=== PATIENT | male | born 1990 | race Asian ===

== ENCOUNTER 2017-08-29 00:39 | Emergency (ER) | payer OTHER ==
[2017-08-29] MEDS ORDERED: NS 1,000 ML IV ONE (00:42)
--- NOTE | 2017-08-29 00:45 | EDPHY ---
H & P HPI/ROS: HPI CHIEF COMPLAINT: Altered mental status, polysubstance ingestion, agitated combative behavior sedated in the field HISTORY OF PRESENT ILLNESS: 28-year-old male, Geovani Ontiveros, presents emergency room by EMS for acute alcohol intoxication as well as possible polysubstance ingestion. His roommates called 911. When EMS arrived evaluate him he became agitated and aggressive with them requiring 5 mils IV Versed in route to the emergency room. Report that he had alcohol to drink and possibly other substances. It Is reported marijuana. Unclear why became agitated. Arrival to the emergency room he is sleepy, sedated IV 5 mg of Versed in route, he is unable to participate in exam or give an accurate history this time. Unclear if there was trauma related. But there is no significant trauma on exam. Blood sugar reported 98 upon arrival. Past Medical History: Unknown medical history Past Surgical History: Unknown surgical history Social History: Unknown Family History: Unknown ROS REVIEW OF SYSTEMS: A comprehensive 10 point review of systems is otherwise negative aside from elements mentioned in the history of present illness. Exam Constitutional sleepy, triage nursing summary reviewed, vital signs reviewed, awake/alert. Eyes normal conjunctivae and sclera, EOMI, PERRLA. Horizontal beating nystagmus consistent acute alcohol intoxication HENT normal inspection, atraumatic, moist mucus membranes, no epistaxis, neck supple/ no meningismus, no raccoon eyes. Respiratory clear to auscultation bilaterally, normal breath sounds, no respiratory distress, no wheezing. Cardiovascular rate normal, regular rhythm, no murmur, no edema, distal pulses normal. Gastrointestinal soft, non-tender, no rebound, no guarding, normal bowel sounds, no distension, no pulsatile mass. Genitourinary no CVA tenderness. Musculoskeletal no midline vertebral tenderness, full range of motion, no calf swelling, no tenderness of extremities, no meningismus, good pulses, neurovascularly intact. Skin pink, warm, & dry, no rash, skin atraumatic. Neurologic sleepy, moves everything. Psychiatric normal mood/affect. Heme/Lymph/Immune no lymphadenopathy. Differential Diagnosis: Includes but is not limited to in a particular order polysubstance abuse, alcohol intoxication, substance intoxication, intracranial bleed Medical Decision Making: Plan for this patient IV establishment full assessment director obtain blood work, check alcohol level, drug screen, CT head without contrast rule out bleed, and re-evaluate. Re-evaluation: 0102: CT scan head without contrast negative for acute bleed or traumatic injury. 0203: Serum alcohol 63 0314: Patient ambulated well throughout the emergency without difficulty. Stable gait. Would like to go home. He has safe ride home with his friend at bedside. Vital signs are stable Source: EMS Exam Limitations: Intoxication Constitutional: Initial Vital Signs Temperature (C) 36.5 C 08/29/17 00:35 Heart Rate 118 H 08/29/17 00:35 Respiratory Rate 16 08/29/17 00:35 Blood Pressure 130/56 H 08/29/17 00:35 O2 Sat (%) 89 L 08/29/17 00:35 O2 Delivery Mode Room Air O2 (L/minute) 1 Medical Decision Making - Data Points Laboratory Results: Laboratory Results 08/29/17 01:15 08/29/17 01:15 08/29/17 08/29/17 01:15 01:15 WBC 5.08 10^3/uL 10^3/uL (3.80-9.50) RBC 4.42 10^6/uL 10^6/uL (4.40-6.38) Hgb 14.4 g/dL g/dL (13.7-17.5) Hct 41.3 % % (40.0-51.0) MCV 93.4 fL fL (81.5-99.8) MCH 32.6 pg pg (27.9-34.1) MCHC 34.9 g/dL g/dL (32.4-36.7) RDW 12.0 % % (11.5-15.2) Plt Count 209 10^3/uL 10^3/uL (150-400) MPV 9.6 fL fL (8.7-11.7) Neut % (Auto) 57.1 % % (39.3-74.2) Lymph % (Auto) 34.8 % % (15.0-45.0) [place] % (Auto) 6.7 % % (4.5-13.0) Eos % (Auto) 0.4 % L % (0.6-7.6) Baso % (Auto) 0.6 % % (0.3-1.7) Nucleat RBC Rel Count 0.0 % % (0.0-0.2) Absolute Neuts (auto) 2.90 10^3/uL 10^3/uL (1.70-6.50) Absolute Lymphs (auto) 1.77 10^3/uL 10^3/uL (1.00-3.00) Absolute Monos (auto) 0.34 10^3/uL 10^3/uL (0.30-0.80) Absolute Eos (auto) 0.02 10^3/uL L 10^3/uL (0.03-0.40) Absolute Basos (auto) 0.03 10^3/uL 10^3/uL (0.02-0.10) Absolute Nucleated RBC 0.00 10^3/uL 10^3/uL (0-0.01) Immature Gran % 0.4 % % (0.0-1.1) Immature Gran # 0.02 10^3/uL 10^3/uL (0.00-0.10) Sodium 144 mEq/L mEq/L (135-145) Potassium 3.6 mEq/L mEq/L (3.5-5.2) Chloride 105 mEq/L mEq/L (97-110) Carbon Dioxide 22 mEq/l mEq/l (22-31) Anion Gap 17 mEq/L H mEq/L (8-16) BUN 14 mg/dL mg/dL (7-23) Creatinine 0.9 mg/dL mg/dL (0.7-1.3) Estimated GFR > 60 Glucose 99 mg/dL mg/dL (70-100) Calcium 9.0 mg/dL mg/dL (8.5-10.4) Ethyl Alcohol 63 mg/dL H mg/dL (0-10) Medications Given: Discontinued Medications Sodium Chloride (Ns) 1,000 mls @ 0 mls/hr IV ONCE ONE; Wide Open PRN Reason: Protocol Stop: 08/29/17 00:43 Last Admin: 08/29/17 01:30 Dose: 1,000 mls Departure - Departure Disposition: Home, Routine, Self-Care Clinical Impression: Alcoholic intoxication Qualifiers: Complication of substance-induced condition: uncomplicated Qualified Code(s): F10.920 - Alcohol use, unspecified with intoxication, uncomplicated Condition: Good Instructions: Alcohol Intoxication (ED), Abuse of Alcohol (ED) Referrals: Patient,NotPresent [Primary Care Provider] - As per Instructions
[2017-08-29 01:26] LABS: PLATELET COUNT 209 10^3/uL (150-400)
[2017-08-29 03:39] VITALS: BP 104/52; PULSE 110; RESP 18; TEMP 97.5; O2SAT 98
== END 2017-08-29 03:40 | disposition home or self-care (01) ==
LOC: EDBD 00:39
DX: F10.920 Alcohol use, unspecified with intoxication, uncomplicated (principal); E86.9 Volume depletion, unspecified
CPT/HCPCS: G0480